=== PATIENT | female | born 1980 | race American Indian/Alaskan Native ===

== ENCOUNTER 2017-09-18 19:29 | Emergency (ER) | payer OTHER ==
[2017-09-18 19:30] VITALS: BMI 25.8
[2017-09-18 21:34] LABS: MEAN CORPUSCULAR HGB CONC 33.1 g/dL (33.0-37.0); MEAN PLATELET VOLUME 9.2 fL (7.2-11.7); RBC 4.68 Mil/uL (3.80-5.20); RED CELL DISTRIBUTION WIDTH 13.7 % (11.5-14.5); WHITE BLOOD COUNT 6.4 K/uL (4.8-10.8)
[2017-09-18 21:38] LABS: HEMOGLOBIN 13.1 g/dL (11.0-16.0); MEAN CELL VOLUME 84.7 fL (81.0-99.0)
[2017-09-18] MEDS ORDERED: Sodium Chloride 0.9% 1,000 ML IV ONE (21:46)
[2017-09-18 21:47] LABS: ALB/GLOB RATIO 1.2 (1.0-2.1); ALBUMIN 3.8 g/dL (3.5-5.0); ALT/SGPT 21 U/L (9-52); AST/SGOT 16 U/L (14-36); BLOOD UREA NITROGEN 13 mg/dL (7-17); CALCIUM 8.1 mg/dl (8.6-10.4); GFR AFRICAN-AMERICAN > 60; GFR NON-AFRICAN AMERICAN > 60
[2017-09-18] MEDS ORDERED: Sodium Chloride 0.9% 1,000 ML ONE (22:01)
[2017-09-18 23:22] LABS: SQUAMOUS EPITHIAL 1 /hpf (0-5); URINE BACTERIA RARE (<OCC); URINE BILIRUBIN NEGATIVE (NEGATIVE); URINE CLARITY Clear (Clear); URINE COLOR Straw (YELLOW); URINE GLUCOSE (UA) NORMAL (Normal); URINE LEUKOCYTE ESTERASE NEG Leu/uL (Negative); URINE NITRATE NEGATIVE (NEGATIVE); URINE PROTEIN NEGATIVE (NEGATIVE); URINE UROBILINOGEN NORMAL mg/dL (0.2-1.0)
[2017-09-18 23:28] LABS: HCG,QUALITATIVE URINE NEGATIVE (NEGATIVE); URINE BLOOD NEGATIVE (NEGATIVE)
--- NOTE | 2017-09-19 00:21 | C.PDOC ---
History Of Present Illness Pt has multiple, seemingly unrelated complaints, including headache, dizziness and abdominal pain. Time Seen by Provider: 09/18/17 21:04 Chief Complaint (Nursing): Medical Clearance History Per: Patient Onset/Duration Of Symptoms: Days (1) Current Symptoms Are (Timing): Better Severity: Moderate Additional History Per: Prior Records Past Medical History Reviewed: Historical Data, Nursing Documentation, Vital Signs Vital Signs: Last Vital Signs Temp 100 F H 09/18/17 20:15 Pulse 108 H 09/18/17 20:15 Resp 16 09/18/17 20:15 BP 133/84 09/18/17 20:15 Pulse Ox 97 09/18/17 20:15 - Medical History PMH: Diabetes, Gastritis - [facility] ENDOSCOPIC BIOPSY OF RECTUM (02/13/13) UTERINE LES DESTRUCT NEC (09/09/13) Family History: States: Unknown Family Hx - Social History Hx Tobacco Use: No Hx Alcohol Use: No Hx Substance Use: No - Immunization History Hx Tetanus Toxoid Vaccination: No Hx Influenza Vaccination: Yes Hx Pneumococcal Vaccination: Yes Review Of Systems Except As Marked, All Systems Reviewed And Found Negative. Constitutional: Negative for: Fever ENT: Positive for: Ear Pain (on/off) Cardiovascular: Negative for: Chest Pain Respiratory: Negative for: Shortness of Breath Gastrointestinal: Positive for: Nausea, Abdominal Pain. Negative for: Vomiting Genitourinary: Positive for: Vaginal Bleeding (Pt states she is on her menstrual period now). Negative for: Dysuria Musculoskeletal: Negative for: Neck Pain Neurological: Positive for: Headache, Dizziness. Negative for: Weakness, Numbness, Seizures Physical Exam - Physical Exam Appears: Non-toxic, No Acute Distress Skin: Normal Color, Warm, Dry, No Rash Head: Atraumatic, Normacephalic Eye(s): bilateral: Normal Inspection, PERRL, EOMI Ear(s): Bilateral: Normal Neck: Normal ROM, Supple Cardiovascular: Rhythm Regular Respiratory: Normal Breath Sounds, No Accessory Muscle Use Gastrointestinal/Abdominal: Soft, No Tenderness, No Distention Back: No CVA Tenderness Extremity: Normal ROM Neurological/Psych: Oriented x3, Normal Speech, No Cerebellar Signs, Normal Motor, Normal Sensation ED Course And Treatment - Laboratory Results Result Diagrams: 09/18/17 21:31 09/18/17 21:31 Lab Interpretation: No Acute Changes Urine POC: Negative O2 Sat by Pulse Oximetry: 97 Pulse Ox Interpretation: Normal Progress - Interventions Interventions:: Observation, Intravenous fluid - Medications Administered Oral: Antiemetic - Data Reviewed Data Reviewed: Lab, Old records - Patient Status Patient status: Completely improved - Continuity of Care Discussed patient case with:: Patient, ED Nurse - Patient Plan Patient Plan: Discharge, F/U with PCP, Continue present meds Disposition Counseled Patient/Family Regarding: Studies Performed, Diagnosis, Need For Followup, Rx Given - Disposition Referrals: Joaquim Sher MD [Medical Doctor] - Disposition: HOME/ ROUTINE Disposition Time: 00:23 Condition: IMPROVED Additional Instructions: Drink plenty of fluids. Follow up with your doctor this week for further evaluation and treatment. Return to the ER if you develop fever, vomiting, worsening of symptoms or if you have any other concerns. Prescriptions: Meclizine [Meclizine*] 25 mg PO Q6 PRN #30 tab PRN Reason: Dizziness Instructions: Dizziness (ED) Forms: [facility] (Vietnamese), General Discharge Instructions - Clinical Impression Clinical Impression: Dizziness
[2017-09-19 00:34] VITALS: BP 107/72; PULSE 97; RESP 20; TEMP 99; O2SAT 100
== END 2017-09-19 00:39 | disposition home or self-care (01) ==
LOC: C.ER 19:29
DX: R42 Dizziness and giddiness (principal)
CPT/HCPCS: 80053; 81001; 82948; 84703; 85027; 96360; 99285; J7040